=== PATIENT | female | born 2000 | race Two or more races ===

== ENCOUNTER 2024-05-19 17:56 | Emergency (ER) | payer OTHER ==
[~2024-05-19] VITALS: Ht 160 cm; Wt 70.3 kg
[2024-05-19] MEDS ORDERED: AZITHROMYCIN 500 MG TABLET PO STA (19:21)
== END 2024-05-19 20:56 | disposition home or self-care (01) ==
LOC: ER 17:58
DX: J06.9 Acute upper respiratory infection, unspecified (principal); Z20.822 Contact with and (suspected) exposure to COVID-19

== ENCOUNTER 2024-07-12 12:56 | Emergency (ER) | payer OTHER ==
[~2024-07-12] VITALS: Ht 160 cm; Wt 72.6 kg
[2024-07-12] MEDS ORDERED: ONDANSETRON HCL 2 MG/ML VIAL IM STA (14:16)
[2024-07-12] MEDS ORDERED: ONDANSETRON HCL 2 MG/ML VIAL ONE (14:26)
[2024-07-12 14:36] LABS: HEMATOCRIT 32.2 % (36.0-45.00); HEMOGLOBIN 10.1 g/dL (12.0-15.00); MEAN CELL VOLUME 70.4 fL (80.00-100.00); MEAN CORPUSCULAR HEMOGLOBIN 22.1 pg (27.00-32.0); MEAN CORPUSCULAR HGB CONC 31.4 g/dl (32.0-36.0); PLATELET COUNT 377 K/uL (150-450); RED BLOOD COUNT 4.58 M/uL (4.00-6.00)
[2024-07-12 15:15] LABS: URINE APPEARANCE Cloudy; URINE BILIRRUBIN Small (NEGATIVE); URINE BLOOD Large; URINE COLOR Orange; URINE GLUCOSE Negative (NEGATIVE); URINE KETONE Trace (NEGATIVE); URINE LEUKOCYTE Moderate; URINE NITRATE Negative
[2024-07-12 15:18] LABS: URINE EPITHELIAL CELLS 39.7 uL (0.0-38.8); URINE RBC 1512.2 uL (0.0-20.8); URINE WBC 690.1 uL (0.0-23.2)
[2024-07-12 16:25] LABS: URINE BACTERIA > 9821.5 uL (0.0-1933); URINE CAST 0.29 uL (0.0-1.40); URINE MUCUS HEAVY; URINE PROTEIN 100 (NEGATIVE)
[2024-07-12] MEDS ORDERED: NASAL MIST126 ML NASAL (16:38)
[2024-07-12] MEDS ORDERED: TUSNEL LIQUID178 ML PO (16:38)
[2024-07-12] MEDS ORDERED: AMOX-CLAV 875-1 EACH PO (16:38)
[2024-07-12] MEDS ORDERED: PEPCID AC20 MG PO (16:38)
== END 2024-07-12 16:39 | disposition home or self-care (01) ==
LOC: ER 12:58
PROVIDERS: General Practice
DX: R53.81 Other malaise (principal); J06.9 Acute upper respiratory infection, unspecified; N39.0 Urinary tract infection, site not specified

== ENCOUNTER 2024-11-24 12:06 | Emergency (ER) | payer OTHER ==
[~2024-11-24] VITALS: Ht 160 cm; Wt 73.5 kg
[~2024-11-24 12:06] MED LIST: AMOX-CLAV 875-1 EACH PO; NASAL MIST126 ML NASAL; PEPCID AC20 MG PO; TUSNEL LIQUID178 ML PO
[2024-11-24] MEDS ORDERED: RINGERS SOLUTION,LACTATED 500 ML IV STA (13:13)
[2024-11-24] MEDS ORDERED: KETOROLAC TROMETHAMINE 30 MG VIAL IV STA (13:13)
[2024-11-24] MEDS ORDERED: ONDANSETRON HCL 2 MG/ML VIAL IV STA (13:14)
[2024-11-24 13:34] LABS: BASO % 0.2 % (0.1-1.2); EOS # 0.01 (0.04-0.54); EOS % 0.1 % (0.7-7.0); HEMATOCRIT 37.7 % (34.1-44.9); HEMOGLOBIN 11.4 g/dL (11.2-15.7); LYMPH % 3.6 % (19.3-53.1); MONO # 0.23 (0.24-0.82); MONO % 2.1 % (4.7-12.5); NEUT # 10.28 (1.56-6.13); NEUT % 93.7 % (34.0-71.1); PLATELET COUNT 410 K/uL (163-369); RED BLOOD COUNT 5.19 M/uL (3.93-5.22); RED CELL DISTRIBUTION WIDTH 16.9 % (11.6-14.4)
[2024-11-24 14:07] LABS: CALCIUM 8.8 mg/dL (8.5-10.1); CREATININE SERUM 0.94 mg/dL (0.55-1.02); GFR 73.79; POTASSIUM 4.17 mEq/L (3.5-5.1)
[2024-11-24 15:07] LABS: PH,URINE 7.5 (5.0-8.0); URINE APPEARANCE Clear; URINE BILIRRUBIN Negative (NEGATIVE); URINE BLOOD Large; URINE COLOR Yellow; URINE GLUCOSE Negative (NEGATIVE); URINE KETONE Trace (NEGATIVE); URINE LEUKOCYTE Small; URINE NITRATE Negative; URINE PROTEIN Trace (NEGATIVE)
[2024-11-24 15:10] LABS: URINE BACTERIA 349.9 uL (0.0-1933); URINE WBC 76.6 uL (0.0-23.2)
[2024-11-24] MEDS ORDERED: PROTONIX40 MG PO (16:59)
[2024-11-24] MEDS ORDERED: ZOFRAN8 MG PO (16:59)
[2024-11-24] MEDS ORDERED: BACTRIM DS TAB1 EACH PO (16:59)
== END 2024-11-24 17:04 | disposition home or self-care (01) ==
LOC: ER 12:30
PROVIDERS: General Practice
DX: R10.30 Lower abdominal pain, unspecified (principal); K52.89 Other specified noninfective gastroenteritis and colitis